=== PATIENT | female | born 1955 | race Caucasian/White ===

== ENCOUNTER 2020-07-29 06:02 | Observation (INO) ==
--- NOTE | 2020-07-05 10:12 | PAT Medication Instructions ---
Medication Instructions Date of Service July 05, 2020 Home Medications Gamunex-C 10 g SUBCUT WK Gel-One 30 mg INTRA-ARTICULAR DIRECTED Qvar RediHaler 1 inh INHALATION BID PRN Viberzi 100 mg PO BID PRN albuterol sulfate [Ventolin HFA] 2 puff INHALATION Q6H PRN armodafinil [Nuvigil] 250 mg PO QAM cephalexin 500 mg PO BID PRN cholecalciferol (vitamin D3) [Vitamin D3] 5,000 unit PO QAM clonazepam [Klonopin] 0.5 mg PO TID PRN doxepin 25 - 50 mg PO HS dronabinol [Marinol] 5 - 7.5 mg PO HS PRN esomeprazole magnesium [Nexium] 40 mg PO BID estradiol 0.05 mg TRANSDERMAL 2XWK fentanyl 1 patch TRANSDERMAL Q72H folic acid 1 mg PO QAM gabapentin 600 mg PO TID PRN hydrochlorothiazide 25 mg PO DAILY PRN hydrocodone-ibuprofen 1 - 2 tab PO Q6H PRN liothyronine 5 mcg PO QAM methotrexate sodium 15 mg PO WK montelukast [Singulair] 10 mg PO BID PRN naloxone 1 mg INTRANASAL DIRECTED PRN omega-3 acid ethyl esters [Lovaza] 4 cap PO QAM ondansetron HCl [Zofran] 8 mg PO TID PRN prednisone 5 mg PO DAILY PRN promethazine 25 mg PO Q8H PRN suvorexant 20 mg PO HS tizanidine 4 mg PO QID PRN tretinoin [Retin-A] 1 applic TOPICAL HS PRN zaleplon 10 mg PO HS PRN azelastine-fluticasone [Dymista] 1 spray INTRANASAL BID PRN levothyroxine [Synthroid] 100 mcg PO QAM upadacitinib [Rinvoq] 15 mg PO QAM Continue as directed Gamunex-C 10 g SUBCUT WK Gel-One 30 mg INTRA-ARTICULAR DIRECTED naloxone 1 mg INTRANASAL DIRECTED PRN estradiol 0.05 mg TRANSDERMAL 2XWK -- do not place near surgical site fentanyl 1 patch TRANSDERMAL Q72H -- do not place near surgical site ASK your prescriber and surgeon methotrexate sodium 15 mg PO WK upadacitinib [Rinvoq] 15 mg PO QAM STOP taking 2 weeks before surgery If surgery is within 2 weeks, stop taking as soon as possible. omega-3 acid ethyl esters [Lovaza] 4 cap PO QAM STOP taking 24 hours before surgery tretinoin [Retin-A] 1 applic TOPICAL HS PRN Take morning of surgery With a small sip of water, OTHERWISE NOTHING TO EAT OR DRINK AFTER MIDNIGHT: Qvar RediHaler 1 inh INHALATION BID PRN (if needed) albuterol sulfate [Ventolin HFA] 2 puff INHALATION Q6H PRN (if needed) cephalexin 500 mg PO BID PRN (if needed) clonazepam [Klonopin] 0.5 mg PO TID PRN (if needed) esomeprazole magnesium [Nexium] 40 mg PO BID gabapentin 600 mg PO TID PRN (if needed) hydrocodone-ibuprofen 1 - 2 tab PO Q6H PRN (if needed, may be taken up to four hours before surgery) liothyronine 5 mcg PO QAM ondansetron HCl [Zofran] 8 mg PO TID PRN (if needed) prednisone 5 mg PO DAILY PRN (if needed) promethazine 25 mg PO Q8H PRN (if needed) azelastine-fluticasone [Dymista] 1 spray INTRANASAL BID PRN (if needed) levothyroxine [Synthroid] 100 mcg PO QAM Take evening before surgery Qvar RediHaler 1 inh INHALATION BID PRN (if needed) Viberzi 100 mg PO BID PRN (if needed) albuterol sulfate [Ventolin HFA] 2 puff INHALATION Q6H PRN (if needed) cephalexin 500 mg PO BID PRN (if needed) clonazepam [Klonopin] 0.5 mg PO TID PRN (if needed) doxepin 25 - 50 mg PO HS dronabinol [Marinol] 5 - 7.5 mg PO HS PRN (if needed) esomeprazole magnesium [Nexium] 40 mg PO BID gabapentin 600 mg PO TID PRN (if needed) hydrochlorothiazide 25 mg PO DAILY PRN (if needed) hydrocodone-ibuprofen 1 - 2 tab PO Q6H PRN (if needed) montelukast [Singulair] 10 mg PO BID PRN (if needed) ondansetron HCl [Zofran] 8 mg PO TID PRN (if needed) prednisone 5 mg PO DAILY PRN (if needed) promethazine 25 mg PO Q8H PRN (if needed) suvorexant 20 mg PO HS tizanidine 4 mg PO QID PRN (if needed) zaleplon 10 mg PO HS PRN (if needed) azelastine-fluticasone [Dymista] 1 spray INTRANASAL BID PRN (if needed) Other Notes If you have any questions please call us at [phone] or [phone] or [phone] or [phone]
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
--- NOTE | 2020-07-09 11:04 | XRay Report ---
XR chest Pre-admission PA/Lat HISTORY: 65 years-old Female pat preoperative exam. No acute chest complaints COMPARISON: None TECHNIQUE: PA and lateral views of the chest FINDINGS: Cardiac silhouette is upper limits of normal in size. Mild right hemidiaphragmatic elevation with kerri nting of the right costophrenic angle laterally. No pneumothorax, large pleural effusion, overt pulmo nary edema or airspace consolidation typical for pneumonia. Degenerative changes of the spine. Revers e left shoulder total joint arthroplasty. Convex right curvature of the lumbar spine is partially scar ged. IMPRESSION: Mild right hemidiaphragmatic elevation with right costophrenic angle blunting suggestive of atelectasis versus trace pleural effusion. ACT 112: Negative or not required by law. The above report was generated using voice recognition software. It may contain grammatical, syntax o r spelling errors. Electronically signed by: Pranav Rojo M.D. 07/09/2020 11:03 AM
[2020-07-09 11:41] LABS: Basophils # (auto) 0.01 K/uL (0-0.2); Basophils % (auto) 0.1 %; Eosinophils # (auto) 0.03 K/uL (0-0.5); Eosinophils % (auto) 0.4 %; Hematocrit (blood only) 34.4 % (37-47); Hemoglobin 11.3 g/dL (12.0-16.0); Immature Granulocytes # (auto) 0.01 K/uL (0.00-0.02); Immature Granulocytes % (auto) 0.1 %; Lymphocytes # (auto) 0.53 K/uL (1.2-3.4); Lymphocytes % (auto) 7.7 %; Mean Corpuscular Hemoglobin 32.8 pg (25-34); Mean Corpuscular Hgb Conc 32.8 g/dL (32-36); Mean Platelet Volume 8.4 fL (7.4-10.4); Monocytes # (auto) 0.07 K/uL (0.11-0.59); Neutrophils # (auto) 6.24 K/uL (1.4-6.5); Neutrophils % (auto) 90.7 %; Platelet Count 399 K/uL (130-400); RDW Coefficient of Variation 16.5 % (11.5-14.5); Red Blood Count 3.44 M/uL (4.2-5.4); White Blood Count 6.89 K/uL (4.8-10.8)
[2020-07-09 11:49] LABS: BUN Creatinine Ratio 22.2 (10-20); Calcium 10.1 mg/dl (8.5-10.1); Creatinine Clr Calc Pharmacy 84.5 ml/min; Est GFR (African American) 100.9; Potassium 4.4 mmol/L (3.5-5.1)
[2020-07-09 11:54] LABS: Partial Thromboplastin Ratio 0.9; Partial Thromboplastin Time 23.5 Seconds (21.0-31.0); Prothrombin Time 9.8 Seconds (9.0-12.0)
--- NOTE | 2020-07-10 06:09 | Electrocardiogram Report ---
Test Reason : Blood Pressure : / mmHG Vent. Rate : 089 BPM Atrial Rate : 089 BPM P-R Int : 154 ms QRS Dur : 082 ms QT Int : 358 ms P-R-T Axes : 066 050 064 degrees QTc Int : 435 ms Normal sinus rhythm Normal ECG No previous ECGs available Confirmed by Kristian Littlejohn ([id number]) on 07/10/2020 6:09:25 AM Referred By: Vin Coronado Confirmed By:Kristian Littlejohn
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
[~2020-07-29 06:02] MED LIST: ACETAMINOPHEN 500 MG TAB PO SCH; FAMOTIDINE 20 MG TAB PO SCH; GABAPENTIN 600 MG DOSE PO SCH; LR 500ML BOLUS, THEN 15ML/HR IV SCH; LR 60ML/HR IV SCH; TRANEXAMIC ACID 1,000 MG **IV Intra-op IV SCH; TRANEXAMIC ACID 1,000 MG **IV Pre-op IV SCH; ceFAZolin 1000MG 1,000 MG/7.5 ML SYR IV SCH; dexAMETHasone 4 MG TAB PO SCH
--- NOTE | 2020-07-29 06:48 | History & Physical Bridge Note ---
Date of Service July 29, 2020 History & Physical Bridge Note I have examined the patient, reviewed the History & Physical and in the interval since the performance of the History & Physical I have noted the following changes of clinical significance: no changes noted
[2020-07-29] MEDS ORDERED: MIDAZOLAM HCL 1 MG/ML 2ML VIAL ONE ×2 (07:03→08:19)
[2020-07-29] MEDS ORDERED: fentaNYL citrate 100 MCG/2 ML VIAL ONE (07:03)
[2020-07-29] MEDS ORDERED: ORTHO JOINT ANESTHETIC ONE (07:11)
[2020-07-29] MEDS ORDERED: BUPIVACAINE 0.5 % 5 MG/1 ML PF 10ML VIAL ONE (07:33)
[2020-07-29] MEDS ORDERED: ATROPINE SULFATE 0.1 MG/ML 10ML SYR IV PRN (08:15)
[2020-07-29] MEDS ORDERED: HYDROmorphone INJ 2 MG/ML SYR/VIAL IV PRN (08:15)
[2020-07-29] MEDS ORDERED: ONDANSETRON INJ 2 MG/ML 2 ML VIAL IV PRN ×2 (08:15→11:06)
[2020-07-29] MEDS ORDERED: PROMETHAZINE HCL 12.5 MG in SODIUM CHLORIDE 0.9% 50 ML IV PRN (08:15)
[2020-07-29] MEDS ORDERED: fentaNYL citrate 100 MCG/2 ML VIAL IV PRN (08:15)
[2020-07-29] MEDS ORDERED: ePHEDrine sulfate 50 MG/ML AMP IV PRN (08:15)
[2020-07-29] MEDS ORDERED: DEXAMETHASONE SOD INJ 4 MG/ML VIAL ONE (08:39)
[2020-07-29] MEDS ORDERED: LIDOCAINE HCL 2% 2 ML VIAL/AMP(20MG/ML) INFIL ONE (08:39)
[2020-07-29] MEDS ORDERED: PROPOFOL IV EMULSION 10 MG/ML 20 ML VIAL IV ONE (08:39)
[2020-07-29] MEDS ORDERED: ePHEDrine sulfate 50 MG/ML SYR ONE (08:39)
[2020-07-29] MEDS ORDERED: PHENYLEPHRINE 100MCG/ML 5ML SYR ONE (08:39)
[2020-07-29] MEDS ORDERED: ONDANSETRON INJ 2 MG/ML 2 ML VIAL ONE (08:39)
--- NOTE | 2020-07-29 09:32 | Operative Report ---
PG Post Operative Report Pre & Post Diagnosis Operation Date: 07/29/20 08:30 Pre-Op Diagnosis: Right Hip Degenerative Joint Disease Post-Op Diagnosis: Right Hip Degenerative Joint Disease I identified the patient and participated in the time-out.: Yes Procedure Operation Date: 07/29/20 08:30 Actual Procedures p Right Anterior Total Hip Arthroplasty(Right) - Vin Coronado DO Surgeon Vin Coronado DO Urologist Physician Vin Tovar PAC Estimated Blood Loss 50 Findings Consistent with Post-Op Diagnosis Specimens Right femoral head Complications none Disposition Disposition: Recovery Room Indications Alie is a pleasant 65-year-old female who presented my office with chronic increasing right hip and groin pain. X-rays and clinical examination were diagnostic for advanced osteoarthritis of the right hip. After failing conservative treatment, she elected proceed with a right anterior total hip arthroplasty. Description of Procedure Implants used I used a Biomet Taperloc total hip arthroplasty system with a size 13 standard offset Taperloc stem, a 56 mm G7 cup with a 25mm screw, an E1 polyethylene liner, a 40 mm ceramic head with a 0 neck. Alie arrived at the hospital for the above procedure. She was seen in the preoperative holding area and the operative extremity was identified and signed. She was given a spinal anesthetic, a preoperative antibiotic, and TXA. She was then taken back to the operating room and laid on the table in the supine position. She was given basic sedation. The operative leg was secured to a Puristst leg positioner. The hip was then prepped and draped in sterile fashion. A timeout was done and the patient and the operative extremity was properly identified. An anterior approach was used. Dissection was taken down through the fascia and the tensor muscle belly was retracted laterally and the rectus was retracted medially. The circumflex vessels were identified and ligated. The capsule was then incised and tagged for later repair. The femoral neck was then cut and the femoral head was removed. The acetabulum was exposed. Time was spent doing a complete circumferential labral release. Sequential reaming of the acetabulum up to a size 55 reamer was done. Final reamings were done under fluoroscopy to ensure appropriate version. A Biomet 56 mm G7 cup was then impacted into place. A single 25 mm screw was placed. The E1 polyethylene liner was then snapped into place. Surrounding soft tissues were then injected with 100 cc of an orthopedic pain control cocktail. The proximal femur was then exposed. Sequential broaching up to a size 13 broach was done. Off that broach a size 40 head with a 0 neck was trialed. The hip was reduced and fluoroscopic images showed anatomic alignment of the implants in acceptable length. The broach was removed. The final size 13 standard offset Taperloc stem was then impacted into place. A ceramic 40 mm head with a 0 neck was then impacted onto the stem and the hip was reduced. Final fluoroscopic images showed anatomic alignment of the hip. The capsule was then closed with #1 Vicryl suture. A dilute betadyne lavage was then done for 3 minutes. The joint was then irrigated with normal saline solution. The fascia was closed with #1 PDS suture. Skin was closed with 2-0 Vicryl, shamika, and a Silverlon dressing. She was then transferred to a hospital bed and taken to the post anesthesia care unit in stable condition. She tolerated the procedure well. Vin Tovar PA-C, was present for the entire procedure. He was critical for patient positioning, prepping, draping, retraction exposure, wound closure and application of sterile dressing. I attest to the content of the Intraoperative Record and any orders documented therein. Any exceptions are noted below.
--- NOTE | 2020-07-29 10:18 | Fluoroscopy Report ---
FL hip RT 1V CLINICAL HISTORY: RT ANTERIOR TOTAL HIP COMPARISON STUDY: None. FLUOROSCOPY TIME: 20 seconds. FINDINGS: 3 fluoroscopic spot images of the right hip demonstrate a right total hip arthroplasty. The hardware is intact. No fracture or dislocation. IMPRESSION: Fluoroscopy provided for right total hip arthroplasty. ACT 112: Negative or not required by law. Electronically signed by: Sony Real M.D. 07/29/2020 10:16 AM
--- NOTE | 2020-07-29 10:20 | XRay Report ---
AP PELVIS, CROSSTABLE LATERAL RIGHT HIP History: Right total hip arthroplasty. Degenerative arthritis. Postop. FINDINGS: The patient is status post a right total hip arthroplasty. The hardware is intact. No fract ure or dislocation. Skin shamika are in place. IMPRESSION: Right total hip arthroplasty. No evidence for hardware complication ACT 112: Negative or not required by law. Electronically signed by: Sony Real M.D. 07/29/2020 10:19 AM
--- NOTE | 2020-07-29 10:55 | Anesthesiology Progress Note ---
Date of Service July 29, 2020 Anesthesia Post Procedure Vital Signs Vital Signs: Temp Pulse Pulse Resp BP Pulse Ox 07/29/20 10:50 81 16 99/55 L 97 07/29/20 10:40 82 16 95/53 L 97 07/29/20 10:30 36.6 C 81 16 106/64 96 07/29/20 10:20 81 18 104/59 L 96 07/29/20 10:10 77 14 98/77 L 99 07/29/20 10:00 80 15 115/63 100 07/29/20 09:54 36.6 C 86 14 117/63 98 07/29/20 07:53 37.2 C 82 20 120/78 96 07/29/20 07:33 38.1 C H 84 20 159/93 H 97 Pain Intensity Lower Back: Pain Intensity: 5 Transfer of Care Handoff Completed per policy Notes Mental Status: alert / awake / arousable and participated in evaluation Patient Amnestic to Procedure: Yes Nausea / Vomiting: adequately controlled Pain: adequately controlled Airway Patency, RR, SpO2: stable & adequate BP & HR: stable & adequate Hydration State: stable & adequate Anesthetic Complications: no major complications apparent and Pt Satisfied with anesthetic care
[2020-07-29] MEDS ORDERED: METOCLOPRAMIDE HCL INJ 5 MG/ML 2 ML VIAL IV PRN (11:06)
[2020-07-29] MEDS ORDERED: [UNRECOGNIZED DRUG - OTHER] IA SCH (11:06)
[2020-07-29] MEDS ORDERED: NALOXONE HCL INJ 1 MG/ML 2ML SYR INTNAS PRN (11:06)
[2020-07-29] MEDS ORDERED: cephALEXin 500 MG CAP PO PRN (11:06)
[2020-07-29] MEDS ORDERED: NALOXONE HCL 0.4 MG/1 ML VIAL/CARP IV PRN (11:06)
[2020-07-29] MEDS ORDERED: lisinopril 20 MG TAB PO PRN (11:06)
[2020-07-29] MEDS ORDERED: MAGNESIUM HYDROXIDE SUSP 30 ML UDC PO PRN (11:06)
[2020-07-29] MEDS ORDERED: ZALEPLON 5 MG CAPSULE PO PRN (11:06)
[2020-07-29] MEDS ORDERED: MONTELUKAST SODIUM 10 MG TABLET PO PRN (11:06)
[2020-07-29] MEDS ORDERED: predniSONE 5 MG TAB PO PRN (11:06)
[2020-07-29] MEDS ORDERED: IMMUNE GLOBULIN SQ SCH (11:06)
[2020-07-29] MEDS ORDERED: clonazePAM 0.5 MG TAB PO PRN (11:06)
[2020-07-29] MEDS ORDERED: tiZANidine HCL 4 MG TABLET PO PRN (11:06)
[2020-07-29] MEDS ORDERED: ALBUTEROL HFA 8 GM INHALER INH PRN (11:06)
[2020-07-29] MEDS ORDERED: TERAZOSIN HCL 1 MG CAP PO PRN (11:06)
[2020-07-29] MEDS ORDERED: TRETINOIN 0.05% TOP PRN (11:06)
[2020-07-29] MEDS ORDERED: bisacodyL 10 MG SUPP PR PRN (11:06)
[2020-07-29] MEDS ORDERED: SODIUM CHLORIDE 0.9% 1000ML 1,000 ML IV SCH (11:06)
[2020-07-29] MEDS ORDERED: GABAPENTIN 300 MG CAP PO PRN (11:06)
[2020-07-29] MEDS ORDERED: PROMETHAZINE HCL 25 MG TAB PO PRN (11:06)
[2020-07-29] MEDS ORDERED: hydroCHLOROthiazide 25 MG TAB PO PRN (11:06)
[2020-07-29] MEDS ORDERED: amLODIPine BESYLATE 5 MG TAB PO PRN (11:06)
[2020-07-29] MEDS ORDERED: ONDANSETRON 8MG OD TAB PO PRN (11:26)
[2020-07-29] MEDS ORDERED: FLUTICASONE FUROATE 100MCG 14 PUFFS/INHALER INH PRN (11:59)
[2020-07-29] MEDS ORDERED: KETOROLAC 30 MG/ML VIAL IV SCH (12:00)
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
[2020-07-29] MEDS ORDERED: Nursing to Pharmacy Communication SCH (13:30)
[2020-07-29] MEDS: ACETAMINOPHEN 500 MG TAB PO SCH ×2 (15:20→20:40)
[2020-07-29] MEDS ORDERED: fentaNYL 75 MCG/HR TDSY TD SCH (15:45)
[2020-07-29] MEDS ORDERED: [UNRECOGNIZED DRUG - REMARK] SCH (16:00)
[2020-07-29] MEDS ORDERED: DYMISTA NAE PRN (16:07)
[2020-07-29] MEDS: ceFAZolin 2000MG 2,000 MG/15 ML SYR IV SCH ×2 (16:32→23:02)
[2020-07-29] MEDS: CHECK fentaNYL PATCH PLACEMENT SCH ×2 (16:32→23:02)
[2020-07-29] MEDS: [UNRECOGNIZED DRUG - REMARK] SCH ×2 (16:54→23:03)
--- NOTE | 2020-07-29 17:35 | Billing Data ---
Date of Service July 29, 2020 Coding Level of Care Code 26535 Inpt Consult Level 3
[2020-07-29] MEDS: oxyCODONE HCL IR 5 MG TAB (IMMEDIATE RELEASE) PO PRN ×2 (19:21→23:01)
[2020-07-29] MEDS: DOCUSATE SODIUM 100 MG CAP PO SCH (20:39)
[2020-07-29] MEDS: ESOMEPRAZOLE 40 MG PO SCH (20:39)
[2020-07-29] MEDS: HYDROmorphone INJ 0.5 MG/0.5 ML SYR IV PRN (20:43)
[2020-07-29] MEDS ORDERED: DOXEPIN HCL 25 MG CAPSULE PO SCH (21:00)
[2020-07-29] MEDS ORDERED: SENNA 8.6 MG TAB PO SCH (21:00)
[2020-07-29] MEDS ORDERED: PANTOprazole 40 MG TAB PO SCH (21:00)
[2020-07-30] MEDS: HYDROmorphone INJ 0.5 MG/0.5 ML SYR IV PRN ×3 (00:36→09:59)
[2020-07-30] MEDS: oxyCODONE HCL IR 5 MG TAB (IMMEDIATE RELEASE) PO PRN ×3 (04:01→12:03)
[2020-07-30] MEDS: ACETAMINOPHEN 500 MG TAB PO SCH (05:12)
[2020-07-30] MEDS ORDERED: LIOTHYRONINE SODIUM 5 MCG TAB PO SCH (06:30)
[2020-07-30] MEDS ORDERED: LEVOTHYROXINE SODIUM 100 MCG TABLET PO SCH (06:30)
[2020-07-30 06:33] LABS: Basophils # (auto) 0.01 K/uL (0-0.2); Basophils % (auto) 0.1 %; Eosinophils # (auto) 0.01 K/uL (0-0.5); Eosinophils % (auto) 0.1 %; Hematocrit (blood only) 27.4 % (37-47); Hemoglobin 9.1 g/dL (12.0-16.0); Immature Granulocytes # (auto) 0.03 K/uL (0.00-0.02); Immature Granulocytes % (auto) 0.2 %; Lymphocytes # (auto) 0.57 K/uL (1.2-3.4); Lymphocytes % (auto) 4.7 %; Mean Corpuscular Hemoglobin 33.3 pg (25-34); Mean Corpuscular Hgb Conc 33.2 g/dL (32-36); Mean Corpuscular Volume 100.4 fL (80-100); Mean Platelet Volume 8.6 fL (7.4-10.4); Monocytes # (auto) 1.15 K/uL (0.11-0.59); Monocytes % (auto) 9.4 %; Neutrophils # (auto) 10.42 K/uL (1.4-6.5); Neutrophils % (auto) 85.5 %; Platelet Count 258 K/uL (130-400); RDW Coefficient of Variation 16.2 % (11.5-14.5); RDW Standard Deviation 58.9 fL (36.4-46.3); Red Blood Count 2.73 M/uL (4.2-5.4); White Blood Count 12.19 K/uL (4.8-10.8)
--- NOTE | 2020-07-30 06:42 | Orthopedic Progress Note ---
Date of Service July 30, 2020 Assessment & Plan (1) Status post right hip replacement: Overall she is doing very well. She is having too much pain in the left hip. She is on Xarelto for DVT prophylaxis. She will be seen by physical therapy later this morning for ambulation and range of motion exercises. She can be discharged to home. She will follow-up with orthopedics in 2 weeks. Xiomara Strange was seen and examined at bedside this morning. Overall she is doing very well. She is not having much pain in the right hip. She has been up and ambulating to the bathroom. She has no complaints.. Review of Systems All systems reviewed & are unremarkable except as noted in HPI & below. Physical Exam On physical examination of the right hip, the Silverlon dressing is clean and dry. Her leg lengths are equal. She has active dorsiflexion and plantarflexion of the right ankle.. Results & Data Results & Data Laboratory Results . Diagnostic Findings Postoperative x-rays of the right hip show the prosthesis to be in anatomic alignment without any evidence of fracture, dislocation, or loosening. PG Care Time/CCT Total # of Minutes Spent Total Time Spent with Patient: Total time spent is greater than 50% in coordination of care (as documented) at patient's floor/unit and/or counseling patient: Coding Level of Care Code 13011 Post Operative Follow-Up Diagnoses Status post right hip replacement Z96.641
--- NOTE | 2020-07-30 06:44 | Discharge Summary ---
Date of Service July 30, 2020 Admission HPI (Per Admitting) Alie is a 65-year-old female who is been dealing with chronic increasing bilateral hip pain. Her right hip is worse than her left. X-rays and clinical examination have been diagnostic for advanced osteoarthritis. After failing conservative treatment, she has elected proceed with a right anterior total hip arthroplasty.. Admission Exam (Per Admitting) On physical examination of the right hip, she ambulates with a cane. She is a hunched over posture. She has limited range of motion of her hips. All of her pains are located within her groin.. Principal Diagnosis Same as "Discharge Diagnosis" noted below under Discharge Instructions. Discharge Exam On physical examination of the right hip, the Silverlon dressing is clean and dry. Her leg lengths are equal. She has active dorsiflexion and plantarflexion of the right ankle.. Discharge Data Consultations 07/29/20 12:05 Consult Hospitalist Routine 07/30/20 08:00 Consult Case Management - Discharge Planning Routine Procedures Performed Operation Date: 07/29/20 08:30 Actual Procedures p Right Anterior Total Hip Arthroplasty - uncemented(Right) - Vin Coronado DO Ordered Studies 07/29/20 08:30 FL fluoroscopy <1hr Routine FL hip RT 1V Routine Hospital Course (1) Status post right hip replacement: On July 29, 2020 Alie arrived at [facility] and underwent a right anterior total hip arthroplasty without complication. She had a spinal anesthetic. Postoperatively she was started on Xarelto for DVT prophylaxis and transferred to the general orthopedic floors. Her hospital course was uneventful. On postop day #1 her vital signs were stable and her pain was well controlled. She was able to participate well with physical therapy doing ambulation and range of motion exercises. She was then discharged home. She will follow-up with orthopedics in 2 weeks. PG Care Time/CCT Total # of Minutes Spent Total Time Spent with Patient: Total time spent is greater than 50% in coordination of care (as documented) at patient's floor/unit and/or counseling patient: Discharge Plan Discharge Items Patient Disposition: Home - Home Health Services Reason For Visit: Right Hip Degenerative Joint Disease Discharge Diagnosis: Right hip replacement Activity: As commented below Non-emergency contact: Surgeon Call non-emergency contact if: your wound has increased redness and your wound has increased drainage Follow-up/Referrals: Sony Ruiz M.D. [Primary Care Provider] - Diet: Regular Addtl Attending Provider Instructions: Activity and Therapy Recommendations: * If you are using [facility] then therapy will be provided at your home until they feel you have accomplished all of your goals. * If you are using [facility] then Physical Therapy will be provided until they feel you are ready to start Outpatient Physical Therapy. * If you are not using home therapy then Outpatient Physical Therapy should start about 3-5 days from your day of surgery. Therapy will last about 6-10 weeks * You were shown a series of exercises in the hospital. Do these exercises three times each day including the exercises you were shown in physical therapy. * Get up and walk several times each day.~ For the first four weeks, try not to stand or walk for more than one hour at a time. If you do stand or walk for more than one hour, you will not hurt anything, but your leg will likely swell.~~ * As you feel comfortable, you may change from the walker or crutches to a cane and~then to independent walking. Medications: * Narcotic You will likely be sent home from the hospital with a prescription for the narcotic pain medication that worked best throughout your stay. * Aspirin Most patients will be required to take Aspirin 81mg twice a day for 6 weeks after surgery. This is obtained [id number] and a prescription is not necessary. * Other medications may be prescribed for specific circumstances. If you have any questions, please call the office at . * Resume previous home medications unless otherwise instructed TEDs/Elastic Stockings: The white elastic stockings help limit swelling and prevent blood clots from forming in your legs. The more you wear them, the more they work. Wear them for six weeks. Dressing Care: Leave the Silverlon dressing in place for 7 days. After 7 days you may remove the dressing. If the incision is not draining then you may leave the shamika open to air. If there is a little bit of drainage or if the shamika are getting stuck on your clothing then cover the incision with a dry dressing. The shamika will be removed at your 2 week follow-up appointment. Showering: You may shower with the Silverlon dressing in place. Do not let the shower spray hit the dressing directly. Pat the Silverlon dressing dry. If the dressing becomes wet underneath, then simply remove the dressing. Keep the incision dry until you are 7 days out from the day of surgery. After 7 days you may remove the Silverlon dressing and shower with the shamika exposed. Let soapy water run over the shamika and pat them dry. Do not scrub or soak the incision. Things To Watch For: * Drainage from the incision site that occurs more than one week after your surgery. * Increased redness at the incision site. * Fever above 102 degrees Fahrenheit. * Unusual chest pain or shortness of breath. * Call [facility] at with any of the above problems Follow-Up Visit: Follow-up with Dr. Coronado's PA (Vin Tovar) 2-3 weeks after your day of surgery. He will remove your shamika and answer any questions. If you have any additional questions or concerns, Dr Coronado is usually in the office at the same time and will be available An appointment was probably scheduled when you signed-up for surgery in the office. If you have any questions call Office Instructions: More detailed instructions as well as Frequently Asked Questions were provided in a folder by our office when you signed-up for surgery. Please review these instructions when you get home. If you have any further questions or concerns, please feel free to call the office at [phone] Pending Studies at Discharge: No Stand-Alone Forms: [facility], Smoking Cessation Medications and DC Order Prescriptions: Continued Xarelto 10 mg tablet 10 mg PO DAILY Qty: 30 RF: 0 clonazepam [Klonopin] 0.5 mg Tablet 0.5 mg PO TID PRN (Reason: Anxiety) RF: 0 cephalexin 500 mg Capsule 500 mg PO BID PRN (Reason: Other) RF: 0 cholecalciferol (vitamin D3) [Vitamin D3] 5,000 unit Tablet 5,000 unit PO QAM RF: 0 armodafinil [Nuvigil] 200 mg Tablet 250 mg PO QAM RF: 0 fentanyl 50 mcg/hr Patch 72 Hour 1 patch TRANSDERMAL Q72H RF: 0 hydrocodone-ibuprofen 7.5-200 mg Tablet 1 - 2 tab PO Q6H PRN (Reason: Pain) RF: 0 doxepin 25 mg Capsule 25 - 50 mg PO HS RF: 0 estradiol 0.05 mg/24 hr Patch Semiweekly 0.05 mg transdermal 2XWK RF: 0 dronabinol [Marinol] 2.5 mg Capsule 5 - 7.5 mg PO HS PRN (Reason: prn) RF: 0 esomeprazole magnesium [Nexium] 40 mg Capsule,Delayed Release(Dr/Ec) 40 mg PO BID RF: 0 gabapentin 300 mg Capsule 600 mg PO TID PRN (Reason: Pain) RF: 0 folic acid 1 mg Tablet 1 mg PO QAM RF: 0 hydrochlorothiazide 25 mg Tablet 25 mg PO DAILY PRN (Reason: Edema) RF: 0 Gamunex-C 10 gram/100 mL (10 %) Solution 10 g subcut WK RF: 0 Gel-One 30 mg/3 mL Syringe 30 mg INTRA-ARTICULAR DIRECTED RF: 0 tizanidine 4 mg Tablet 4 mg PO QID PRN (Reason: Spasms) RF: 0 ondansetron HCl [Zofran] 8 mg Tablet 8 mg PO TID PRN (Reason: Nausea) RF: 0 prednisone 5 mg Tablet 5 mg PO DAILY PRN (Reason: Inflammation) RF: 0 tretinoin [Retin-A] 0.05 % Cream 1 applic TOPICAL HS PRN (Reason: Other) RF: 0 liothyronine 5 mcg Tablet 5 mcg PO QAM RF: 0 methotrexate sodium 2.5 mg Tablet 15 mg PO WK RF: 0 promethazine 25 mg Tablet 25 mg PO Q8H PRN (Reason: Nausea) RF: 0 montelukast [Singulair] 10 mg Tablet 10 mg PO BID PRN (Reason: Allergic Symptoms) RF: 0 zaleplon 10 mg Capsule 10 mg PO HS PRN (Reason: Insomnia) RF: 0 albuterol sulfate [Ventolin HFA] 90 mcg/actuation Hfa Aerosol Inhaler 2 puff INHALATION Q6H PRN (Reason: Wheezing) RF: 0 naloxone 1 mg/mL Syringe 1 mg intranasal DIRECTED PRN (Reason: Opioid Reversal) RF: 0 omega-3 acid ethyl esters [Lovaza] 1 gram Capsule 4 cap PO QAM RF: 0 suvorexant 20 mg Tablet 20 mg PO HS RF: 0 Viberzi 100 mg Tablet 100 mg PO BID PRN (Reason: Diarrhea) RF: 0 Qvar RediHaler 80 mcg/actuation Hfa Aerosol Breath Activated 1 inh INHALATION BID PRN (Reason: Allergy Symptoms) RF: 0 azelastine-fluticasone [Dymista] 137-50 mcg/spray Ashley,Non-Aerosol 1 spray INTRANASAL BID PRN (Reason: Congestion) RF: 0 levothyroxine [Synthroid] 100 mcg Tablet 100 mcg PO QAM RF: 0 Rinvoq 15 mg Tablet Extended Release 24 Hr 15 mg PO QAM RF: 0 lisinopril 20 mg Tablet 20 mg PO DAILY PRN (Reason: Hypertension) RF: 0 terazosin 1 mg Capsule 1 mg PO DAILY PRN (Reason: hypertension) RF: 0 amlodipine 10 mg Tablet 10 mg PO DAILY PRN (Reason: Hypertension) RF: 0 Discharge Orders: Discharge Order (Routine); Ordered 07/30/20 Ordered By: Vin Coronado Admission Data Admit Date/Time: 07/29/20 09:58 Attending Provider: Vin Coronado Admit Provider: Vin Coronado Primary Care Provider: Sony Ruiz Other Providers: Burton Rain ; Danyell Madsen ; Julio Garcia ; Esdras Ye ; Anayeli Torres ; Suleman Dailey ; Bruno Singletary ; Thai Shell ; Mariya Young ; Siena Johnson ; Arnulfo Aguilar ; Rosalind Arthur ; Isabelle Torres ; Aaron Rubio ; Rubén Reddy ; Dawna Burleson ; Jamar Weeks ; Tyrell Gayle ; Chelo Angel ; Donal Lara ; Julio Wren ; Vin Callahan ; Monalisa Sethi ; Titi Gary ; Haile Merritt
[2020-07-30 07:02] LABS: BUN Creatinine Ratio 17.6 (10-20); Calcium 9.4 mg/dl (8.5-10.1); Creatinine Clr Calc Pharmacy 86.6 ml/min; Est GFR (African American) 106.1; Est GFR (Non-African American) 91.6; Potassium 4.4 mmol/L (3.5-5.1)
[2020-07-30] MEDS ORDERED: dexAMETHasone 4 MG TAB PO SCH (08:00)
[2020-07-30] MEDS: CHECK fentaNYL PATCH PLACEMENT SCH (08:05)
[2020-07-30] MEDS: [UNRECOGNIZED DRUG - REMARK] SCH (08:06)
[2020-07-30] MEDS ORDERED: MULTIVITAMIN TAB PO SCH (09:00)
[2020-07-30] MEDS ORDERED: FOLIC ACID 1 MG TAB PO SCH (09:00)
[2020-07-30] MEDS ORDERED: RIVAROXABAN 10 MG TABLET PO SCH ×2 (09:00)
[2020-07-30] MEDS ORDERED: OMEGA-3 (PURIFIED FISH OIL) 1 GM CAP PO SCH (09:00)
[2020-07-30] MEDS ORDERED: ARMODAFINIL 250 MG PO SCH (09:00)
[2020-07-30] MEDS: DOCUSATE SODIUM 100 MG CAP PO SCH (09:15)
[2020-07-30] MEDS: ESOMEPRAZOLE 40 MG PO SCH (09:22)
[2020-08-05] MEDS ORDERED: metHOTREXate sodium 2.5 MG TAB PO SCH (09:00)
== END 2020-07-30 12:19 | disposition home health service (06) ==
LOC: ASU 06:02 → 3E 06:02

== ENCOUNTER 2020-12-06 05:38 | Observation (INO) ==
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
[2020-12-06] MEDS ORDERED: dexAMETHasone 4 MG TAB PO SCH (06:00)
[2020-12-06] MEDS ORDERED: TRANEXAMIC ACID 1,000 MG **IV Intra-op IV SCH (06:00)
[2020-12-06] MEDS ORDERED: ceFAZolin 1000MG 1,000 MG/7.5 ML SYR IV SCH (06:00)
[2020-12-06] MEDS ORDERED: TRANEXAMIC ACID 1,000 MG **IV Pre-op IV SCH (06:00)
[2020-12-06] MEDS ORDERED: LR 60ML/HR IV SCH (06:00)
[2020-12-06] MEDS ORDERED: GABAPENTIN 300 MG CAP PO SCH (06:00)
[2020-12-06] MEDS ORDERED: FAMOTIDINE 20 MG TAB PO SCH (06:00)
[2020-12-06] MEDS ORDERED: LR 500ML BOLUS, THEN 15ML/HR IV SCH (06:00)
[2020-12-06] MEDS ORDERED: ACETAMINOPHEN 500 MG TAB PO SCH (06:00)
[2020-12-06] MEDS ORDERED: ROPIVACAINE 0.5% HCL/PF 150 MG, BUPIVACAINE 0.75% MPF 20 ML, EPINEPHrine 30MG/30ML (OR ... INSTIL SCH (06:00)
[2020-12-06] MEDS ORDERED: BUPIVACAINE 0.5 % 5 MG/1 ML PF 10ML VIAL ONE (06:25)
--- NOTE | 2020-12-06 06:29 | History & Physical Bridge Note ---
Date of Service December 06, 2020 History & Physical Bridge Note I have examined the patient, reviewed the History & Physical and in the interval since the performance of the History & Physical I have noted the following changes of clinical significance: no changes noted
[2020-12-06] MEDS ORDERED: LIDOCAINE 2% 2 ML VIAL/AMP(20MG/ML) INFIL ONE (06:35)
[2020-12-06] MEDS ORDERED: PROPOFOL IV EMULSION 10 MG/ML 20 ML VIAL IV ONE ×3 (06:35→06:38)
[2020-12-06] MEDS ORDERED: MIDAZOLAM HCL 1 MG/ML 2ML VIAL ONE (06:35)
[2020-12-06] MEDS ORDERED: ONDANSETRON INJ 2 MG/ML 2 ML VIAL ONE (06:35)
[2020-12-06] MEDS ORDERED: ORTHO JOINT ANESTHETIC ONE (07:17)
[2020-12-06] MEDS ORDERED: PROMETHAZINE HCL 6.25 MG in SODIUM CHLORIDE 0.9% 50 ML IV PRN (07:46)
[2020-12-06] MEDS ORDERED: ONDANSETRON INJ 2 MG/ML 2 ML VIAL IV PRN ×2 (07:46→12:01)
[2020-12-06] MEDS ORDERED: ATROPINE SULFATE 0.1 MG/ML 10ML SYR IV PRN (07:46)
[2020-12-06] MEDS ORDERED: ePHEDrine sulfate 50 MG/ML AMP IV PRN (07:46)
[2020-12-06] MEDS ORDERED: HYDROmorphone INJ 1 MG/ML SYRINGE IV PRN (07:46)
[2020-12-06] MEDS ORDERED: fentaNYL citrate 100 MCG/2 ML VIAL ONE (08:10)
[2020-12-06] MEDS ORDERED: HYDROCORTISONE SOD SUCCINATE 100 MG/2 ML VIAL ONE (08:13)
--- NOTE | 2020-12-06 09:37 | Operative Report ---
PG Post Operative Report Pre & Post Diagnosis Operation Date: 12/06/20 07:50 Pre-Op Diagnosis: Osteoarthritis/Degenerative Joint Disease Left Hip Post-Op Diagnosis: Osteoarthritis/Degenerative Joint Disease Left Hip I identified the patient and participated in the time-out.: Yes Procedure Operation Date: 12/06/20 07:50 Actual Procedures p Left Anterior Total Hip Arthroplasty(Left) - Vin Coronado DO Surgeon Vin Coronado, Bag Filler Vin Tovar PAC Estimated Blood Loss 250 Findings Consistent with Post-Op Diagnosis Specimens Left femoral head Complications none Disposition Disposition: Recovery Room Indications Alie is a pleasant 65-year-old female who is been dealing with chronic bilateral hip pain. I did a right anterior hip replacement on her about 3 months ago. She is done very well with that. Unfortunately she is dealing with a lot of left hip pain. X-rays and clinical examination been diagnostic for advanced arthritis of the left hip. After failing conservative treatment, she elected proceed with a left anterior hip replacement. Description of Procedure Implants used I used a [employer]immer[employer] total hip arthroplasty system with a size 2 standard offset Avenir Complete stem, a 56 mm G7 cup with a 25mm screw, an E1 polyethylene liner, a 40 mm ceramic head with a -3.5 neck. Alie arrived at the hospital for the above procedure. She was seen in the preoperative holding area and the operative extremity was identified and signed. She was given a spinal anesthetic, a preoperative antibiotic, and TXA. She was then taken back to the operating room and laid on the table in the supine position. She was given basic sedation. The operative leg was secured to a Puristst leg positioner. The hip was then prepped and draped in sterile fashion. A timeout was done and the patient and the operative extremity was properly identified. An anterior approach was used. Dissection was taken down through the fascia and the tensor muscle belly was retracted laterally and the rectus was retracted medially. The circumflex vessels were identified and ligated. The capsule was then incised and tagged for later repair. The femoral neck was then cut and the femoral head was removed. The acetabulum was exposed. Time was spent doing a complete circumferential labral release. Sequential reaming of the acetabulum up to a size 55 reamer was done. Final reamings were done under fluoroscopy to ensure appropriate version. A Biomet 56 mm G7 cup was then impacted into place. A single 25 mm screw was placed. The E1 polyethylene liner was then snapped into place. Surrounding soft tissues were then injected with 100 cc of an orthopedic pain control cocktail. The proximal femur was then exposed. Sequential broaching up to a size 2 broach was done. Off that broach a size 40 head with a -3.5 neck was trialed. The hip was reduced and fluoroscopic images showed anatomic alignment of the implants in acceptable length. The broach was removed. The final size 2 standard offset Avenir Complete stem was then impacted into place. A ceramic 40 mm head with a -3.5 neck was then impacted onto the stem and the hip was reduced. Final fluoroscopic images showed anatomic alignment of the hip. The capsule was then closed with #1 Vicryl suture. A dilute betadyne lavage was then done for 3 minutes. The joint was then irrigated with normal saline solution. The fascia was closed with #1 PDS suture. Skin was closed with 2-0 Vicryl, shamika, and a Silverlon dressing. She was then transferred to a hospital bed and taken to the post anesthesia care unit in stable condition. She tolerated the procedure well. iVn Tovar PA-C, was present for the entire procedure. He was critical for patient positioning, prepping, draping, retraction exposure, wound closure and application of sterile dressing. I attest to the content of the Intraoperative Record and any orders documented therein. Any exceptions are noted below.
--- NOTE | 2020-12-06 10:11 | Fluoroscopy Report ---
FL hip LT 1V CLINICAL HISTORY: LEFT ANTERIOR TOTAL HIP ARTHROPLASTY COMPARISON STUDY: 10/25/2020 FLUOROSCOPY TIME: 33 seconds. NUMBER OF FLUOROSCOPIC IMAGES: 1 FINDINGS: A single intraoperative fluoroscopic spot image reveals postsurgical changes of a total lef t hip arthroplasty. There is no dislocation. IMPRESSION: Intraoperative fluoroscopic spot image demonstrating a total left hip arthroplasty. No e vidence of dislocation ACT 112: Negative or not required by law. Electronically signed by: Babar Goldman M.D. 12/06/2020 10:09 AM
--- NOTE | 2020-12-06 10:58 | Anesthesiology Progress Note ---
Date of Service December 06, 2020 Anesthesia Post Procedure Vital Signs Vital Signs: Temp Pulse Pulse Resp BP Pulse Ox 12/06/20 10:55 77 12 113/66 98 12/06/20 10:45 80 12 123/78 99 12/06/20 10:35 79 12 120/73 98 12/06/20 10:25 36.8 C 84 14 136/88 96 12/06/20 10:15 86 16 129/82 99 12/06/20 10:05 96 H 14 134/83 99 12/06/20 09:59 36.8 C 91 H 14 117/70 98 12/06/20 06:53 37.2 C 78 20 138/78 95 Pain Intensity Left Hip: Pain Intensity: 9 Transfer of Care Handoff Completed per policy Notes Mental Status: alert / awake / arousable Patient Amnestic to Procedure: Yes Nausea / Vomiting: adequately controlled Pain: adequately controlled Airway Patency, RR, SpO2: stable & adequate BP & HR: stable & adequate Hydration State: stable & adequate Anesthetic Complications: no major complications apparent
--- NOTE | 2020-12-06 11:24 | XRay Report ---
XR hip 1V LT w pelvis CLINICAL HISTORY: Postoperative study. Hip arthroplasty COMPARISON: 07/29/2020 DISCUSSION: A total right hip arthroplasty is again visualized. There is now evidence for a total lef t hip arthroplasty. The acetabular and femoral components appear well seated. There is no dislocation . There are overlying skin shamika. There is gas present within the soft tissues consistent with rece nt surgery. Degenerative changes are present at the lumbosacral junction. IMPRESSION: Total left hip arthroplasty. No evidence of dislocation ACT 112: Negative or not required by law. Electronically signed by: Babar Goldman M.D. 12/06/2020 11:22 AM
[2020-12-06] MEDS ORDERED: clonazePAM 0.5 MG TAB PO PRN (12:01)
[2020-12-06] MEDS ORDERED: tiZANidine HCL 4 MG TABLET PO PRN (12:01)
[2020-12-06] MEDS ORDERED: MONTELUKAST SODIUM 10 MG TABLET PO PRN (12:01)
[2020-12-06] MEDS ORDERED: NALOXONE HCL 0.4 MG/1 ML VIAL/CARP IV PRN (12:01)
[2020-12-06] MEDS ORDERED: TRETINOIN 0.05% TOP PRN (12:01)
[2020-12-06] MEDS ORDERED: ZALEPLON 5 MG CAPSULE PO PRN (12:01)
[2020-12-06] MEDS ORDERED: bisacodyL 10 MG SUPP PR PRN (12:01)
[2020-12-06] MEDS ORDERED: ALBUTEROL HFA 8 GM INHALER INH PRN (12:01)
[2020-12-06] MEDS ORDERED: NALOXONE HCL INJ 1 MG/ML 2ML SYR INTNAS PRN (12:01)
[2020-12-06] MEDS ORDERED: METOCLOPRAMIDE HCL INJ 5 MG/ML 2 ML VIAL IV PRN (12:01)
[2020-12-06] MEDS ORDERED: PROMETHAZINE HCL 25 MG TAB PO PRN (12:01)
[2020-12-06] MEDS ORDERED: hydroCHLOROthiazide 25 MG TAB PO PRN (12:01)
[2020-12-06] MEDS ORDERED: FLUCONAZOLE 100 MG TAB PO PRN (12:01)
[2020-12-06] MEDS ORDERED: predniSONE 20 MG TAB PO PRN (12:01)
[2020-12-06] MEDS ORDERED: MAGNESIUM HYDROXIDE SUSP 30 ML UDC PO PRN (12:01)
[2020-12-06] MEDS ORDERED: predniSONE 5 MG TAB PO PRN (12:01)
[2020-12-06] MEDS: SODIUM CHLORIDE 0.9% 1000ML 1,000 ML IV SCH ×2 (12:16→21:29)
[2020-12-06] MEDS ORDERED: FLUTICASONE FUROATE 100MCG 14 PUFFS/INHALER INH PRN (12:48)
[2020-12-06] MEDS: oxyCODONE HCL IR 5 MG TAB (IMMEDIATE RELEASE) PO PRN (12:59)
[2020-12-06] MEDS ORDERED: ONDANSETRON 8MG OD TAB PO PRN (12:59)
[2020-12-06] MEDS ORDERED: ESTRADIOL TD SCH (15:00)
[2020-12-06] MEDS ORDERED: fentaNYL 50 MCG/HR TDSY TD SCH (15:00)
[2020-12-06] MEDS ORDERED: [UNRECOGNIZED DRUG - REMARK] NAE PRN (15:37)
[2020-12-06] MEDS ORDERED: [UNRECOGNIZED DRUG - REMARK] PO PRN (15:47)
[2020-12-06] MEDS: GABAPENTIN 300 MG CAP PO SCH ×2 (16:07→20:04)
[2020-12-06] MEDS: ACETAMINOPHEN 500 MG TAB PO SCH ×2 (16:28→21:29)
[2020-12-06] MEDS: CHECK fentaNYL PATCH PLACEMENT SCH (16:29)
[2020-12-06] MEDS: ceFAZolin 2000MG 2,000 MG/15 ML SYR IV SCH (16:30)
[2020-12-06] MEDS: DOCUSATE SODIUM 100 MG CAP PO SCH (20:04)
[2020-12-06] MEDS: [UNRECOGNIZED DRUG - REMARK] PO SCH (20:05)
[2020-12-06] MEDS: HYDROmorphone INJ 0.5 MG/0.5 ML SYR IV PRN (20:06)
[2020-12-06] MEDS ORDERED: SENNA 8.6 MG TAB PO SCH (21:00)
[2020-12-06] MEDS ORDERED: PANTOprazole 40 MG TAB PO SCH (21:00)
[2020-12-06] MEDS ORDERED: DOXEPIN HCL 25 MG CAPSULE PO SCH (21:00)
[2020-12-06] MEDS: CHOLESTYRAMINE LIGHT 4 GM PKT PO SCH (21:29)
[2020-12-07] MEDS: ceFAZolin 2000MG 2,000 MG/15 ML SYR IV SCH (00:53)
[2020-12-07] MEDS: oxyCODONE HCL IR 5 MG TAB (IMMEDIATE RELEASE) PO PRN ×2 (00:53→06:05)
[2020-12-07] MEDS: CHECK fentaNYL PATCH PLACEMENT SCH ×2 (00:59→08:18)
[2020-12-07] MEDS: HYDROmorphone INJ 0.5 MG/0.5 ML SYR IV PRN ×2 (03:33→10:29)
[2020-12-07] MEDS: ACETAMINOPHEN 500 MG TAB PO SCH (06:00)
[2020-12-07] MEDS ORDERED: LIOTHYRONINE SODIUM 5 MCG TAB PO SCH (06:30)
[2020-12-07] MEDS ORDERED: LEVOTHYROXINE SODIUM 100 MCG TABLET PO SCH (06:30)
[2020-12-07] MEDS ORDERED: dexAMETHasone 4 MG TAB PO ONE (08:00)
--- NOTE | 2020-12-07 08:13 | Orthopedic Progress Note ---
Date of Service December 07, 2020 Assessment & Plan (1) Status post left hip replacement: Overall she is doing very well. She is not having much pain in the left hip. She is on Xarelto for DVT prophylaxis. She has her own pain management regimen. She will be seen by physical therapy today for ambulation and range of motion exercises. She can be discharged home later today. She would like to talk to case management first about being set up with home care by home nursing agency in [place] and a home health paraprofessional education assistant 3 times a week. Xiomara Strange was seen and examined at bedside this morning. Overall she is doing very well. She denies any much pain in the left hip. She has been up and ambulating around her room. She has no complaints.. Review of Systems All systems reviewed & are unremarkable except as noted in HPI & below. Physical Exam On physical examination of the left hip, the dressing is clean and dry. Her leg lengths are equal. She has active dorsiflexion and plantarflexion of her left ankle.. Results & Data Results & Data Laboratory Results . Diagnostic Findings Postoperative x-rays of the left hip show the prosthesis to be in anatomic alignment without any evidence of fracture, dislocation, or loosening. PG Care Time/CCT Total # of Minutes Spent Total Time Spent with Patient: Total time spent is greater than 50% in coordination of care (as documented) at patient's floor/unit and/or counseling patient: Coding Level of Care Code 45043 Post Operative Follow-Up Diagnoses Status post left hip replacement Z96.642
[2020-12-07] MEDS: CHOLESTYRAMINE LIGHT 4 GM PKT PO SCH (08:14)
--- NOTE | 2020-12-07 08:14 | Discharge Summary ---
Date of Service December 07, 2020 Admission HPI (Per Admitting) Alie is a pleasant 65-year-old female who I did a right hip replacement on 3 months ago. She has done well with that. Unfortunately she has been dealing with increasing left hip and groin pain. X-rays and clinical examination been diagnostic for advanced osteoarthritis of the left hip. After failing conservative treatment, she has elected proceed with a left total hip arthroplasty.. Admission Exam (Per Admitting) On physical examination of the left hip, she has decreased range of motion. She has pain with forced internal and external rotation. Her leg lengths are equal.. Principal Diagnosis Same as "Discharge Diagnosis" noted below under Discharge Instructions. Discharge Exam On physical examination of the left hip, the dressing is clean and dry. Her leg lengths are equal. She has active dorsiflexion and plantarflexion of her left ankle.. Discharge Data Procedures Performed Operation Date: 12/06/20 07:50 Actual Procedures p Left Anterior Total Hip Arthroplasty(Left) - Vin Coronado DO Ordered Studies 12/06/20 07:00 FL hip LT 1V Routine Hospital Course (1) Status post left hip replacement: On December 06 Alie arrived at [facility] and underwent a left hip replacement without complication. She had a spinal anesthetic. Postoperatively she was started on Xarelto for DVT prophylaxis and transferred to the general orthopedic floors. Her hospital course was uneventful. On postop day #1 her vital signs were stable and her pain was well controlled. She was able to participate well with physical therapy doing ambulation and range of motion exercises. She was then discharged home. She will follow-up with orthopedics in 2 weeks. PG Care Time/CCT Total # of Minutes Spent Total Time Spent with Patient: Total time spent is greater than 50% in coordination of care (as documented) at patient's floor/unit and/or counseling patient: Discharge Plan Discharge Items Patient Disposition: Home - Home Health Services Reason For Visit: DJD Left Hip Discharge Diagnosis: Left hip replacement Activity: As commented below Non-emergency contact: Surgeon Call non-emergency contact if: your wound has increased redness and your wound has increased drainage Follow-up/Referrals: Sony Ruiz M.D. [Primary Care Provider] - Diet: Regular Addtl Attending Provider Instructions: Activity and Therapy Recommendations: * If you are using [facility] then therapy will be provided at your home until they feel you have accomplished all of your goals. * If you are using [facility] then Physical Therapy will be provided until they feel you are ready to start Outpatient Physical Therapy. * If you are not using home therapy then Outpatient Physical Therapy should start about 3-5 days from your day of surgery. Therapy will last about 6-10 weeks * You were shown a series of exercises in the hospital. Do these exercises three times each day including the exercises you were shown in physical therapy. * Get up and walk several times each day.~ For the first four weeks, try not to stand or walk for more than one hour at a time. If you do stand or walk for more than one hour, you will not hurt anything, but your leg will likely swell.~~ * As you feel comfortable, you may change from the walker or crutches to a cane and~then to independent walking. Medications: * Narcotic You will likely be sent home from the hospital with a prescription for the narcotic pain medication that worked best throughout your stay. * Xarelto daily for 35 days * Other medications may be prescribed for specific circumstances. If you have any questions, please call the office at . * Resume previous home medications unless otherwise instructed TEDs/Elastic Stockings: The white elastic stockings help limit swelling and prevent blood clots from forming in your legs. The more you wear them, the more they work. Wear them for six weeks. Dressing Care: Leave the Silverlon dressing in place for 7 days. After 7 days you may remove the dressing. If the incision is not draining then you may leave the shamika open to air. If there is a little bit of drainage or if the shamika are getting stuck on your clothing then cover the incision with a dry dressing. The shamika will be removed at your 2 week follow-up appointment. Showering: You may shower with the Silverlon dressing in place. Do not let the shower spray hit the dressing directly. Pat the Silverlon dressing dry. If the dressing becomes wet underneath, then simply remove the dressing. Keep the incision dry until you are 7 days out from the day of surgery. After 7 days you may remove the Silverlon dressing and shower with the shamika exposed. Let soapy water run over the shamika and pat them dry. Do not scrub or soak the incision. Things To Watch For: * Drainage from the incision site that occurs more than one week after your surgery. * Increased redness at the incision site. * Fever above 102 degrees Fahrenheit. * Unusual chest pain or shortness of breath. * Call [facility] at with any of the above problems Follow-Up Visit: Follow-up with Dr. Coronado's PA (Vin Tovar) 2-3 weeks after your day of surgery. He will remove your shamika and answer any questions. If you have any additional questions or concerns, Dr Coronado is usually in the office at the same time and will be available An appointment was probably scheduled when you signed-up for surgery in the office. If you have any questions call Office Instructions: More detailed instructions as well as Frequently Asked Questions were provided in a folder by our office when you signed-up for surgery. Please review these instructions when you get home. If you have any further questions or concerns, please feel free to call the office at [phone] Pending Studies at Discharge: No Stand-Alone Forms: [facility], Smoking Cessation Medications and DC Order Prescriptions: Continued oxycodone 5 mg capsule 10 mg PO QID PRN (Reason: Pain) RF: 0 cephalexin 500 mg Capsule 500 mg PO BID PRN (Reason: Other) RF: 0 cholecalciferol (vitamin D3) [Vitamin D3] 5,000 unit Tablet 5,000 unit PO QAM RF: 0 armodafinil [Nuvigil] 200 mg Tablet 250 mg PO QAM RF: 0 fentanyl 50 mcg/hr Patch 72 Hour 1 patch TRANSDERMAL Q72H RF: 0 doxepin 25 mg Capsule 25 - 50 mg PO HS RF: 0 estradiol 0.05 mg/24 hr Patch Semiweekly 0.05 mg transdermal 2XWK RF: 0 dronabinol [Marinol] 2.5 mg Capsule 5 - 7.5 mg PO HS PRN (Reason: prn) RF: 0 esomeprazole magnesium [Nexium] 40 mg Capsule,Delayed Release(Dr/Ec) 40 mg PO BID RF: 0 gabapentin 300 mg Capsule 600 mg PO TID RF: 0 folic acid 1 mg Tablet 1 mg PO QAM RF: 0 hydrochlorothiazide 25 mg Tablet 25 mg PO DAILY PRN (Reason: Edema) RF: 0 Gamunex-C 10 gram/100 mL (10 %) Solution 10 g subcut WK RF: 0 Gel-One 30 mg/3 mL Syringe 30 mg INTRA-ARTICULAR DIRECTED RF: 0 tizanidine 4 mg Tablet 4 mg PO QID PRN (Reason: Spasms) RF: 0 prednisone 5 mg Tablet 5 mg PO DAILY PRN (Reason: Inflammation) RF: 0 tretinoin [Retin-A] 0.05 % Cream 1 applic TOPICAL HS PRN (Reason: Other) RF: 0 liothyronine 5 mcg Tablet 5 mcg PO QAM RF: 0 methotrexate sodium 2.5 mg Tablet 15 mg PO WK RF: 0 promethazine 25 mg Tablet 25 mg PO Q8H PRN (Reason: Nausea) RF: 0 montelukast [Singulair] 10 mg Tablet 10 mg PO BID PRN (Reason: Allergic Symptoms) RF: 0 zaleplon 10 mg Capsule 10 mg PO HS PRN (Reason: Insomnia) RF: 0 albuterol sulfate [Ventolin HFA] 90 mcg/actuation Hfa Aerosol Inhaler 2 puff INHALATION Q6H PRN (Reason: Wheezing) RF: 0 naloxone 1 mg/mL Syringe 1 mg intranasal DIRECTED PRN (Reason: Opioid Reversal) RF: 0 omega-3 acid ethyl esters [Lovaza] 1 gram Capsule 4 cap PO QAM RF: 0 suvorexant 20 mg Tablet 20 mg PO HS RF: 0 Viberzi 100 mg Tablet 100 mg PO BID PRN (Reason: Diarrhea) RF: 0 Qvar RediHaler 80 mcg/actuation Hfa Aerosol Breath Activated 1 inh INHALATION BID PRN (Reason: Allergy Symptoms) RF: 0 clonazepam [Klonopin] 0.5 mg tablet 0.5 mg PO BID PRN (Reason: Anxiety) RF: 0 azelastine-fluticasone [Dymista] 137-50 mcg/spray [place],Non-Aerosol 1 spray INTRANASAL BID PRN (Reason: Congestion) RF: 0 levothyroxine [Synthroid] 100 mcg Tablet 100 mcg PO QAM RF: 0 Rinvoq 15 mg Tablet Extended Release 24 Hr 15 mg PO QAM RF: 0 cholestyramine (with sugar) [Questran] 4 gram Powder 8 g PO BID RF: 0 escitalopram oxalate [Lexapro] 10 mg Tablet 10 mg PO QAM RF: 0 fluconazole 100 mg tablet 100 mg PO DAILY PRN (Reason: Other) RF: 0 prednisone 5 mg tablet 40 mg PO DAILY PRN (Reason: inflammation and pain) RF: 0 rivaroxaban 10 mg tablet 10 mg PO UD RF: 0 ondansetron HCl [Zofran] 8 mg Tablet 8 mg PO Q8H PRN (Reason: Nausea) RF: 0 Discharge Orders: Discharge Order (Routine); Ordered 12/07/20 Ordered By: Vin Coronado Admission Data Admit Date/Time: 12/06/20 10:05 Attending Provider: Vin Coronado Admit Provider: Vin Coronado Primary Care Provider: Sony Ruiz Other Providers: [facility],Home Healthcare
[2020-12-07] MEDS ORDERED: MULTIVITAMIN TAB PO SCH (09:00)
[2020-12-07] MEDS ORDERED: FOLIC ACID 1 MG TAB PO SCH (09:00)
[2020-12-07] MEDS ORDERED: ESCITALOPRAM OXALATE 10 MG TAB PO SCH (09:00)
[2020-12-07] MEDS ORDERED: [UNRECOGNIZED DRUG - REMARK] PO SCH (09:00)
[2020-12-07] MEDS ORDERED: RIVAROXABAN 10 MG TABLET PO SCH (09:00)
[2020-12-07] MEDS ORDERED: [UNRECOGNIZED DRUG - REMARK] PO SCH (09:00)
[2020-12-07] MEDS: [UNRECOGNIZED DRUG - REMARK] PO SCH (09:19)
[2020-12-07] MEDS: GABAPENTIN 300 MG CAP PO SCH (09:21)
[2020-12-07] MEDS: DOCUSATE SODIUM 100 MG CAP PO SCH (09:24)
[2020-12-09] MEDS ORDERED: metHOTREXate sodium 2.5 MG TAB PO SCH (09:00)
== END 2020-12-07 12:03 | disposition home health service (06) ==
LOC: 3W 05:38 → ASU 05:38

== ENCOUNTER 2021-11-18 09:06 | Inpatient (IN) ==
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
[~2021-11-18 09:06] MED LIST changes: +BUPIVACAINE 0.5 % 5 MG/1 ML PF 10ML VIAL ONE; -FAMOTIDINE 20 MG TAB PO SCH; +GABAPENTIN 300 MG CAP PO SCH; -GABAPENTIN 600 MG DOSE PO SCH; +LR 15ML/HR IV SCH; -LR 500ML BOLUS, THEN 15ML/HR IV SCH; +METOCLOPRAMIDE HCL 10 MG TABLET PO SCH; +ROPIVACAINE 0.5% 5 MG/ML 30 ML VIAL ONE; +ROPIVACAINE 0.5% HCL/PF 150 MG, BUPIVACAINE 0.75% MPF 20 ML, EPINEPHrine 30MG/30ML (OR ... INFIL SCH; -ceFAZolin 1000MG 1,000 MG/7.5 ML SYR IV SCH; +ceFAZolin 2000MG 2,000 MG/15 ML SYR IV SCH
--- NOTE | 2021-11-18 11:09 | History & Physical Bridge Note ---
Date of Service November 18, 2021 History & Physical Bridge Note I have examined the patient, reviewed the History & Physical and in the interval since the performance of the History & Physical I have noted the following changes of clinical significance: no changes noted
[2021-11-18] MEDS ORDERED: ORTHO JOINT ANESTHETIC ONE (11:37)
[2021-11-18] MEDS ORDERED: fentaNYL citrate 100 MCG/2 ML VIAL ONE ×2 (11:59→12:39)
[2021-11-18] MEDS ORDERED: MIDAZOLAM HCL 1 MG/ML 2ML VIAL ONE ×2 (11:59→12:39)
[2021-11-18] MEDS ORDERED: ONDANSETRON INJ 2 MG/ML 2 ML VIAL IV PRN ×2 (12:25→16:55)
[2021-11-18] MEDS ORDERED: ePHEDrine sulfate 50 MG/ML AMP IV PRN (12:25)
[2021-11-18] MEDS ORDERED: PROMETHAZINE HCL 12.5 MG in SODIUM CHLORIDE 0.9% 50 ML IV PRN (12:25)
[2021-11-18] MEDS ORDERED: ATROPINE SULFATE 0.1 MG/ML 10ML SYR IV PRN (12:25)
[2021-11-18] MEDS ORDERED: HYDROmorphone INJ 1 MG/ML SYRINGE IV PRN (12:25)
--- NOTE | 2021-11-18 14:56 | Operative Report ---
PG Post Operative Report Pre & Post Diagnosis Operation Date: 11/18/21 12:35 Pre-Op Diagnosis: Aseptic loosening of the right knee Post-Op Diagnosis: Aseptic loosening of the right knee I identified the patient and participated in the time-out.: Yes Procedure Operation Date: 11/18/21 12:35 Actual Procedures p Right Total Knee Arthroplasty Revision, Cemented(Right) both femoral and tibial components- Vin Coronado DO Surgeon Vin Coronado DO Litigation Docket Manager Vin Tovar PAC Estimated Blood Loss 10 Findings Consistent with Post-Op Diagnosis Specimens None Complications none Disposition Disposition: Recovery Room Description of Procedure On November 18, 2021 Alie arrived at [facility] for the above procedure. She was seen in the preoperative holding area and the operative extremity was then fine signed. She was given a preoperative antibiotic and a spinal anesthetic. She was taken back to the operating room and laid on the table in supine position. She was put under basic sedation. The right knee was prepped and draped in sterile fashion. A timeout was done. The patient and the operative extremity was properly identified. The previous incision was used. A medial parapatellar arthrotomy was used to open the knee joint. There was a very minimal amount of synovial fluid. There was no signs of infection. The knee was flexed and the poly component was removed. The femoral component was then tapped with a bone tamp and easily removed. The femoral component was loose. The proximal tibia was then exposed. A small saw and osteotomes were used to remove the tibial component. The tibial component appeared to be slightly better fixated. There was minimal bone loss. Sequential reaming of the tibial canal up to a size 11 reamer was done. The tibial cut was freshened up. The tibia measured to be a size F. I was able to get 3 mm of offset on the stem for best fit. The final trial tibia was assembled. The trial tibia was then impacted in the place. I was happy with the overall fit. The femur was then exposed. Sequential reaming up to a size 13 reamer was done. A 6 mm offset seem to give the best fit. The anterior posterior and chamfer cuts were then freshened up. A size 7 femur was then impacted into place with a 13 mm stem. I was able to get a good fit. A 14 mm CCK poly was trialed. The knee was then brought through a full range of motion and felt to be stable. All trial components were then removed. The final components were then assembled on the back table. The components were then cemented with Palacos G cement. Once cement had hardened a 14 mm polyethylene insert seem to be the best fit. The final size 14 mm CCK polyethylene insert was then snapped into place. A 3-minute Betadine lavage was then done. The knee was brought through full range of motion and felt to be stable. The extensor mechanism was then closed with #1 Vicryl suture. Skin was closed with 2-0 Vicryl and shamika. She was then placed in a soft dressing. She was then transferred to a hospital bed and taken to the postanesthesia care unit in stable condition. She tolerated the procedure well. I used a Padmini persona knee revision system. Vin Tovar PA-C, was present for the entire procedure. He was critical for patient positioning, prepping, draping, retraction exposure, wound closure and application of sterile dressing. I attest to the content of the Intraoperative Record and any orders documented therein. Any exceptions are noted below.
[2021-11-18] MEDS ORDERED: LIDOCAINE 2% 2 ML VIAL/AMP(20MG/ML) INFIL ONE (15:26)
[2021-11-18] MEDS ORDERED: DEXAMETHASONE SOD INJ 4 MG/ML VIAL ONE (15:26)
[2021-11-18] MEDS ORDERED: ONDANSETRON INJ 2 MG/ML 2 ML VIAL ONE (15:26)
[2021-11-18] MEDS ORDERED: PROPOFOL IV EMULSION 10 MG/ML 20 ML VIAL IV ONE (15:26)
[2021-11-18] MEDS ORDERED: MELATONIN 3 MG TAB PO PRN (15:31)
--- NOTE | 2021-11-18 16:06 | Anesthesiology Progress Note ---
Date of Service November 18, 2021 Anesthesia Post Procedure Vital Signs Vital Signs: Temp Pulse Pulse Resp BP BP Pulse Ox 11/18/21 15:55 36.5 C 53 L 14 141/80 H 98 11/18/21 15:45 48 L 14 135/78 98 11/18/21 15:35 54 L 14 133/79 98 11/18/21 15:25 51 L 15 140/81 98 11/18/21 15:18 36.6 C 60 15 129/75 97 11/18/21 10:29 36.9 C 60 18 181/98 H 97 Pain Intensity Right Knee: Pain Intensity: 9 Transfer of Care Handoff Completed per policy Notes Mental Status: alert / awake / arousable Patient Amnestic to Procedure: Yes Nausea / Vomiting: adequately controlled Pain: adequately controlled Airway Patency, RR, SpO2: stable & adequate BP & HR: stable & adequate Hydration State: stable & adequate Neuraxial Anesthesia: was administered and sensory block is resolving Anesthetic Complications: no major complications apparent
--- NOTE | 2021-11-18 16:08 | XRay Report ---
XR knee RT 1 or 2V routine CLINICAL HISTORY: Surgical Post Op TECHNIQUE: 2 views of the right knee were obtained. Comparison: None available at the time of this dictation. FINDINGS: Patient is status post total knee arthroplasty with expected postsurgical changes including soft tiss ue swelling, subcutaneous emphysema, and surgical staple placement. No periarticular lucency or hardw are fracture is seen. IMPRESSION: Expected postoperative appearance status post placement of total knee arthroplasty. ACT 112: Negative or not required by law. Electronically signed by: Thai Zelaya M.D. 11/18/2021 4:07 PM
[2021-11-18] MEDS ORDERED: tiZANidine HCL 4 MG TABLET PO PRN (16:55)
[2021-11-18] MEDS ORDERED: METHOTREXATE SQ SCH (16:55)
[2021-11-18] MEDS ORDERED: FLUCONAZOLE 100 MG TAB PO PRN (16:55)
[2021-11-18] MEDS ORDERED: MAGNESIUM HYDROXIDE SUSP 30 ML UDC PO PRN (16:55)
[2021-11-18] MEDS ORDERED: ALBUTEROL HFA 8 GM INHALER INH PRN (16:55)
[2021-11-18] MEDS ORDERED: SODIUM CHLORIDE 0.9% 1000ML 1,000 ML IV SCH (16:55)
[2021-11-18] MEDS ORDERED: ESTRADIOL 0.05 MG/24 HR TD SCH (16:55)
[2021-11-18] MEDS ORDERED: METOCLOPRAMIDE HCL INJ 5 MG/ML 2 ML VIAL IV PRN (16:55)
[2021-11-18] MEDS ORDERED: predniSONE 5 MG TAB PO PRN (16:55)
[2021-11-18] MEDS ORDERED: NALOXONE HCL 0.4 MG/1 ML VIAL/CARP IV PRN (16:55)
[2021-11-18] MEDS ORDERED: clonazePAM 0.5 MG TAB PO PRN (16:55)
[2021-11-18] MEDS ORDERED: IMMUNE GLOBULIN SQ SCH (16:55)
[2021-11-18] MEDS ORDERED: bisacodyL 10 MG SUPP PR PRN (16:55)
[2021-11-18] MEDS ORDERED: hydroCHLOROthiazide 25 MG TAB PO PRN (16:55)
[2021-11-18] MEDS ORDERED: NALOXONE HCL INJ 1 MG/ML 2ML SYR INTNAS PRN (16:55)
[2021-11-18] MEDS ORDERED: [UNRECOGNIZED DRUG - OTHER] SQ SCH (16:55)
[2021-11-18] MEDS ORDERED: TRETINOIN 0.05% TOP PRN (16:55)
[2021-11-18] MEDS ORDERED: MONTELUKAST SODIUM 10 MG TABLET PO PRN (16:55)
[2021-11-18] MEDS ORDERED: FLUTICASONE FUROATE 100MCG 14 PUFFS/INHALER INH PRN (17:09)
[2021-11-18] MEDS ORDERED: CHOLESTYRAMINE LIGHT 4 GM PKT PO PRN (17:09)
[2021-11-18] MEDS ORDERED: ONDANSETRON 8MG OD TAB PO PRN (17:20)
[2021-11-18] MEDS: CHECK fentaNYL PATCH PLACEMENT SCH ×2 (18:00→23:24)
[2021-11-18] MEDS ORDERED: fentaNYL 50 MCG/HR TDSY TD SCH (18:00)
[2021-11-18] MEDS: oxyCODONE HCL IR 5 MG TAB (IMMEDIATE RELEASE) PO PRN (19:14)
[2021-11-18] MEDS: DOCUSATE SODIUM 100 MG CAP PO SCH (20:07)
[2021-11-18] MEDS: GABAPENTIN 300 MG CAP PO SCH (20:50)
[2021-11-18] MEDS: SULFAMETHOXAZOLE/TRIMETHOPRIM DS 800/160MG TAB PO SCH (20:55)
[2021-11-18] MEDS: ACETAMINOPHEN 500 MG TAB PO SCH (20:56)
[2021-11-18] MEDS ORDERED: PANTOprazole 40 MG TAB PO SCH (21:00)
[2021-11-18] MEDS ORDERED: DOXEPIN HCL 25 MG CAPSULE PO SCH (21:00)
[2021-11-18] MEDS ORDERED: SENNA 8.6 MG TAB PO SCH (21:00)
[2021-11-18] MEDS ORDERED: OXYBUTYNIN CHLORIDE 5 MG TAB PO SCH (21:00)
[2021-11-18] MEDS: HYDROmorphone INJ 0.5 MG/0.5 ML SYR IV PRN (21:09)
[2021-11-18] MEDS: ceFAZolin 2000MG 2,000 MG/15 ML SYR IV SCH (21:10)
[2021-11-18] MEDS ORDERED: ZALEPLON 10 MG PO PRN (22:02)
[2021-11-18] MEDS: VIBERZI 100 MG PO PRN (23:02)
[2021-11-18] MEDS: OXYBUTYNIN CHLORIDE 5 MG TAB PO PRN (23:02)
[2021-11-18] MEDS: ESOMEPRAZOLE 40 MG PO SCH (23:03)
[2021-11-18] MEDS ORDERED: ONDANSETRON 4 MG OD TAB PO PRN (23:15)
[2021-11-19] MEDS: HYDROmorphone INJ 0.5 MG/0.5 ML SYR IV PRN (01:28)
[2021-11-19] MEDS: OXYBUTYNIN CHLORIDE 5 MG TAB PO PRN (02:36)
[2021-11-19] MEDS: ceFAZolin 2000MG 2,000 MG/15 ML SYR IV SCH (06:09)
[2021-11-19] MEDS: ACETAMINOPHEN 500 MG TAB PO SCH (06:12)
[2021-11-19] MEDS: oxyCODONE HCL IR 5 MG TAB (IMMEDIATE RELEASE) PO PRN ×2 (06:13→10:09)
--- NOTE | 2021-11-19 06:22 | Orthopedic Progress Note ---
Date of Service November 19, 2021 Assessment & Plan (1) Status post revision of total replacement of right knee: Overall she is doing fairly well. She is having too much pain in the right knee. The dressing can be changed today after physical therapy. She will be seen by therapy today for ambulation and range of motion exercises. She is on Xarelto 10 mg for DVT prophylaxis and she already has that prescription at home. She also has pain medications from her pain management physician. She was hoping to have a specific home care. She would like her home care through home nursing agency/[facility] with PT 3 times a week and home health aide 3 times a week. She is orthopedically stable for discharge when medically ready. She will follow-up with orthopedics in 2 weeks. Xiomara Strange was seen and examined at bedside this morning. Overall she is doing fairly well. She is not in too much pain in the right knee. She has been up and ambulating to the bathroom. She has no complaints. Review of Systems All systems reviewed & are unremarkable except as noted in HPI & below. Physical Exam On physical examination of the right knee, the dressing has little bit of serous drainage. She has active dorsiflexion plantarflexion of her right ankle. Sensation is intact throughout. Results & Data Results & Data Laboratory Results . Diagnostic Findings Postoperative x-rays of the right knee show the prosthesis to be in anatomic alignment without any evidence of fracture, desiccation, or loosening. PG Care Time/CCT Total # of Minutes Spent Total Time Spent with Patient: Total time spent is greater than 50% in coordination of care (as documented) at patient's floor/unit and/or counseling patient: Coding Level of Care Code 49702 Post Operative Follow-Up Diagnoses Status post revision of total replacement of right knee Z96.651
--- NOTE | 2021-11-19 06:24 | Discharge Summary ---
Date of Service November 19, 2021 Admission HPI (Per Admitting) Alie is a 66-year-old female who I did a hip replacement on in the past. She did very well with that. She had a right knee replacement done by Dr. Harrell in 2019. Postoperatively, he had to take her back for washout and poly exchange. She never did great with the knee. She never had a lot of swelling with it, but it has always been painful. The x-rays have always looked good. Her symptoms are getting worse. She ambulates with the cane because of the knee. It hurts her everyday. It is keeping her from doing activities she enjoys. She has tried extensive conservative treatment. Sed rate and CRP are negative. There is no swelling. No signs of infection. I sent her for a bone scan which showed signs of aseptic loosening. After failing conservative treatment, she elected proceed with a revision right knee replacement. Admission Exam (Per Admitting) On physical examination the right knee, she walks with an antalgic gait. There is no effusion. She has good motion of 0 to 120 degrees no instability. Principal Diagnosis Same as "Discharge Diagnosis" noted below under Discharge Instructions. Discharge Exam On physical examination of the right knee, the dressing has little bit of serous drainage. She has active dorsiflexion plantarflexion of her right ankle. Sensation is intact throughout. Discharge Data Procedures Performed Operation Date: 11/18/21 12:35 Actual Procedures p Right Total Knee Arthroplasty Revision, Cemented(Right) - Vin Coronado DO Ordered Studies 11/18/21 05:00 US - OR guided needle placemen Routine Hospital Course (1) Status post revision of total replacement of right knee: On November 18, 2021 Alie arrived at [facility] and underwent a right revision knee replacement without complication. She had a spinal anesthetic. Postoperatively she was started on Xarelto for DVT prophylaxis and transferred to the general orthopedic floors. Her hospital course was uneventful. On postop day #1, her vital signs were stable and her pain was well controlled. She was able to participate well with physical therapy doing ambulation and range of motion exercises. Her dressing was changed. She was then discharged home. She will follow-up with orthopedics in 2 weeks. PG Care Time/CCT Total # of Minutes Spent Total Time Spent with Patient: Total time spent is greater than 50% in coordination of care (as documented) at patient's floor/unit and/or counseling patient: Discharge Plan Discharge Items Patient Disposition: Home - Home Health Services Reason For Visit: Aseptic loosening right knee Discharge Diagnosis: Revision right knee replacement Activity: Per Instructions section Non-emergency contact: Surgeon Call non-emergency contact if: your wound has increased redness and your wound has increased drainage Follow-up/Referrals: Sony Ruiz M.D. [Primary Care Provider] - Diet: Regular Addtl Attending Provider Instructions: Activity and Therapy Recommendations: * If you are using [facility] then therapy will be provided at your home until they feel you have accomplished all of your goals. * If you are using [facility] then Physical Therapy will be provided until they feel you are ready to start Outpatient Physical Therapy. * If you are not using home therapy then Outpatient Physical Therapy should sta rt about 3-5 days from your day of surgery. Therapy will last about 6-10 weeks * It is important not to put a pillow under your knee when you are relaxing or sleeping. It is just as important to make sure you are getting your knee perfectly straight as it is to regain your knee bend. * You were shown a series of exercises in the hospital. Do these exercises three times each day including the exercises you were shown in physical therapy. * Get up and walk several times each day. For the first four weeks, try not to stand or walk for more than one hour at a time. If you do stand or walk for more than one hour, you will not hurt anything, but your leg will likely swell. * As you feel comfortable, you may change from the walker or crutches to a cane and then to independent walking. Medications: * Narcotic You will likely be sent home from the hospital with a prescription for the narcotic pain medication that worked best throughout your stay. * Xarelto take Xarelto daily for 10 days. * Other medications may be prescribed for specific circumstances. If you have any questions, please call the office at . * Resume previous home medications unless otherwise instructed TEDs/Elastic Stockings: The white elastic stockings help limit swelling and prevent blood clots from forming in your legs.~ The more you wear them, the more they work. Wear them for six weeks. Dressing Care: The dressing can be changed after physical therapy on postop day #1. Daily dry dressing changes for a few days, especially if the incision is still draining some. If the incision is not draining then you may leave the shamika open to air. If there is a little bit of drainage or if the shamika are getting stuck on your clothing then cover the incision with a dry dressing. The shamika will be removed at your 2 week follow-up appointment. Showering: You may shower 5 days from the day of surgery as long as the incision is no longer draining. You may shower with the shamika exposed. Let soapy water run over the shamika and pat them dry. Do not scrub or soak the incision. Things To Watch For: * Drainage from the incision site that occurs more than one week after your surgery. * Increased redness at the incision site. * Fever above 102 degrees Fahrenheit. * Unusual chest pain or shortness of breath. * Call [facility] at with any of the above problems Follow-Up Visit: Follow-up with Dr. Coronado's PA (Vin Tovar) 2-3 weeks after your day of surgery. He will remove your shamika and answer any questions. If you have any additional questions or concerns, Dr Coronado is usually in the office at the same time and will be available An appointment was probably scheduled when you signed-up for surgery in the office. If you have any questions call Office Instructions: More detailed instructions as well as Frequently Asked Questions were provided in a folder by our office when you signed-up for surgery. Please review these instructions when you get home. If you have any further questions or concerns, please feel free to call the office at [phone] Pending Studies at Discharge: No Stand-Alone Forms: My [facility] Medications and DC Order Prescriptions: Continued Xarelto 10 mg tablet 10 mg PO DAILY Qty: 10 RF: 0 oxycodone 5 mg capsule 10 mg PO QID PRN (Reason: Pain) RF: 0 cholecalciferol (vitamin D3) [Vitamin D3] 5,000 unit Tablet 5,000 unit PO QAM RF: 0 armodafinil [Nuvigil] 200 mg Tablet 250 mg PO QAM RF: 0 fentanyl 50 mcg/hr Patch 72 Hour 1 patch TRANSDERMAL Q72H RF: 0 doxepin 25 mg Capsule 25 - 50 mg PO HS RF: 0 estradiol 0.05 mg/24 hr Patch Semiweekly 0.05 mg transdermal 2XWK RF: 0 esomeprazole magnesium [Nexium] 40 mg Capsule,Delayed Release(Dr/Ec) 40 mg PO BID RF: 0 gabapentin 300 mg Capsule 600 mg PO TID RF: 0 folic acid 1 mg Tablet 1 mg PO QAM RF: 0 hydrochlorothiazide 25 mg Tablet 25 mg PO DAILY PRN (Reason: Edema) RF: 0 Gamunex-C 10 gram/100 mL (10 %) Solution 10 g subcut WK RF: 0 Gel-One 30 mg/3 mL Syringe 30 mg INTRA-ARTICULAR DIRECTED RF: 0 tizanidine 4 mg Tablet 4 mg PO QID PRN (Reason: Spasms) RF: 0 prednisone 5 mg Tablet 5 mg PO DAILY PRN (Reason: Inflammation and pain) RF: 0 tretinoin [Retin-A] 0.05 % Cream 1 applic TOPICAL HS PRN (Reason: Other) RF: 0 liothyronine 5 mcg Tablet 5 mcg PO QAM RF: 0 montelukast [Singulair] 10 mg Tablet 10 mg PO BID PRN (Reason: Allergic Symptoms) RF: 0 zaleplon 10 mg Capsule 10 mg PO HS PRN (Reason: Insomnia) RF: 0 albuterol sulfate [Ventolin HFA] 90 mcg/actuation Hfa Aerosol Inhaler 2 puff INHALATION Q6H PRN (Reason: Wheezing) RF: 0 naloxone 1 mg/mL Syringe 1 mg intranasal DIRECTED PRN (Reason: Opioid Reversal) RF: 0 omega-3 acid ethyl esters [Lovaza] 1 gram Capsule 4 cap PO QAM RF: 0 suvorexant 20 mg Tablet 20 mg PO HS PRN (Reason: Sleep) RF: 0 Viberzi 100 mg Tablet 100 mg PO BID PRN (Reason: Diarrhea) RF: 0 Qvar RediHaler 80 mcg/actuation Hfa Aerosol Breath Activated 1 inh INHALATION BID PRN (Reason: Allergy Symptoms) RF: 0 clonazepam [Klonopin] 0.5 mg tablet 0.5 mg PO BID PRN (Reason: Anxiety) RF: 0 azelastine-fluticasone [Dymista] 137-50 mcg/spray [place],Non-Aerosol 1 spray INTRANASAL BID PRN (Reason: Congestion) RF: 0 levothyroxine [Synthroid] 100 mcg Tablet 100 mcg PO QAM RF: 0 Rinvoq 15 mg Tablet Extended Release 24 Hr 15 mg PO QAM RF: 0 cholestyramine (with sugar) [Questran] 4 gram Powder 8 g PO BID PRN (Reason: Diarrhea) RF: 0 escitalopram oxalate [Lexapro] 10 mg Tablet 10 mg PO QAM RF: 0 fluconazole 100 mg tablet 100 mg PO DAILY PRN (Reason: yeast infections) RF: 0 ondansetron HCl 8 mg Tablet 8 mg PO Q8H PRN (Reason: Nausea) RF: 0 sulfamethoxazole-trimethoprim [Bactrim DS] 800-160 mg Tablet 1 tab PO BID RF: 0 oxybutynin chloride [Ditropan] 5 mg Tablet 5 mg PO HS RF: 0 methotrexate (PF) 15 mg/0.4 mL Auto-Injector 0.8 mg SUBCUT UD RF: 0 Discharge Orders: Discharge Order (Routine); Ordered 11/19/21 Ordered By: Vin Coronado Admission Data Admit Date/Time: 11/18/21 15:28 Attending Provider: Vin Coronado Admit Provider: Vin Coronado Primary Care Provider: Sony Ruiz
[2021-11-19] MEDS ORDERED: LIOTHYRONINE SODIUM 5 MCG TAB PO SCH ×2 (06:30→09:00)
[2021-11-19] MEDS ORDERED: SYNTHROID 100 MCG PO SCH (06:30)
[2021-11-19] MEDS: CHECK fentaNYL PATCH PLACEMENT SCH (08:02)
[2021-11-19] MEDS: DOCUSATE SODIUM 100 MG CAP PO SCH (08:03)
[2021-11-19] MEDS ORDERED: FOLIC ACID 1 MG TAB PO SCH (09:00)
[2021-11-19] MEDS ORDERED: MULTIVITAMIN TAB PO SCH (09:00)
[2021-11-19] MEDS ORDERED: ESCITALOPRAM OXALATE 10 MG TAB PO SCH (09:00)
[2021-11-19] MEDS ORDERED: RIVAROXABAN 10 MG TABLET PO SCH (09:00)
[2021-11-19] MEDS: GABAPENTIN 300 MG CAP PO SCH (09:02)
[2021-11-19] MEDS: SULFAMETHOXAZOLE/TRIMETHOPRIM DS 800/160MG TAB PO SCH (09:03)
[2021-11-19] MEDS: ESOMEPRAZOLE 40 MG PO SCH (09:03)
[2021-11-19] MEDS: VIBERZI 100 MG PO PRN (09:05)
== END 2021-11-19 11:47 | disposition home health service (06) | DRG 468 ==
LOC: ASU 09:06 → 3N 15:28